=== PATIENT | male | born 1930 | race Two or more races ===

== ENCOUNTER 2017-04-29 08:42 | Day surgery (SDC) | payer MEDICARE, OTHER ==
[2017-04-29] VITALS (19 sets, daily range): BP systolic 112–153; BP diastolic 57–85; PULSE 62–74; RESP 14–21; Ht 170.2 cm; Wt 88.6 kg
[~2017-04-29] VITALS: Ht 170.2 cm; Wt 88.6 kg
[2017-04-29 09:52] LABS: ADD SCAN DIFF NO
[2017-04-29] MEDS ORDERED: LOSA1TAB19 PO (09:56)
[2017-04-29] MEDS ORDERED: GLIP-95 PO (09:57)
[2017-04-29] MEDS ORDERED: SITA100T8 PO (09:57)
[2017-04-29] MEDS ORDERED: TAMS0.4C2 PO (09:57)
[2017-04-29] MEDS ORDERED: ISOS30TA5 PO (09:58)
[2017-04-29] MEDS ORDERED: LUBI24CA7 PO (09:58)
[2017-04-29] MEDS ORDERED: GABA100C14 PO (09:59)
[2017-04-29] MEDS ORDERED: CHOL100062 PO (10:00)
[2017-04-29] MEDS ORDERED: DUTA0.5C PO (10:00)
[2017-04-29 10:01] LABS: BASOPHILS % 0.9 % (0.0-2.0); EOSINOPHILS # 0.2 10^3/ul (0.0-0.5); EOSINOPHILS % 5.1 % (0.0-7.0); HEMATOCRIT 36.2 % (42.0-52.0); HEMOGLOBIN 12.2 g/dl (14.0-18.0); LYMPHOCYTES # 0.9 10^3/ul (0.8-2.9); MEAN CORPUSCULAR HEMOGLOBIN 29.5 pg (29.0-33.0); MEAN CORPUSCULAR HGB CONC 33.7 g/dl (32.0-37.0); MEAN CORPUSCULAR VOLUME 87.7 fl (82.0-101.0); MEAN PLATELET VOLUME 9.6 fl (7.4-10.4); MONOCYTE # 0.4 10^3/ul (0.3-0.9); MONOCYTES % 9.4 % (0.0-11.0); NEUTROPHIL # 3.1 10^3/ul (1.6-7.5); NEUTROPHILS % 65.4 % (39.0-77.0); PLATELET COUNT 114 10^3/UL (140-415); RED BLOOD COUNT 4.13 10^6/ul (4.70-6.10); RED CELL DISTRIBUTION WIDTH 13.3 % (11.5-14.5); WHITE BLOOD COUNT 4.7 10^3/ul (4.8-10.8)
[2017-04-29] MEDS ORDERED: POTA20TA96 PO (10:01)
[2017-04-29] MEDS ORDERED: AMLO-147 PO (10:02)
[2017-04-29] MEDS ORDERED: FLUT16SP17 NASAL (10:03)
[2017-04-29] MEDS ORDERED: CRAN300T PO (10:03)
[2017-04-29] MEDS ORDERED: MAGN400T28 PO (10:03)
[2017-04-29] MEDS ORDERED: CARV12.579 PO (10:04)
[2017-04-29] MEDS ORDERED: ASPI325T4 PO (10:04)
[2017-04-29] MEDS ORDERED: NIT4 SL (10:04)
[2017-04-29 10:11] LABS: PROTIME 13.2 Sec (12.2-14.2)
[2017-04-29 10:12] LABS: PARTIAL THROMBOPLASTIN TIME 25.8 Sec (25.0-35.0)
[2017-04-29] MEDS ORDERED: IODIXANOL LOCM 100 ML BTL ONE ×2 (10:18→10:57)
[2017-04-29] MEDS ORDERED: VERAPAMIL 5 MG INJ ONE (10:18)
[2017-04-29] MEDS ORDERED: NITROGLYCERIN (IC) 100 MCG/ML INJ ONE (10:18)
[2017-04-29] MEDS ORDERED: LIDOCAINE 1% (MDV) 20 ML INJ ONE (10:18)
[2017-04-29] MEDS ORDERED: HEPARIN 1000 UNITS/ML 10 ML INJ ONE (10:18)
--- NOTE | 2017-04-29 10:24 | RADRPT ---
PROCEDURE: XR Chest. CLINICAL INDICATION: Preop TECHNIQUE: An AP view of the chest was obtained. COMPARISON: No prior exam is available for comparison. FINDINGS: There is prominence of the interstitial markings. No pleural effusion or pneumothorax is seen. Th e cardiomediastinal silhouette is mildly enlarged . Calcifications are seen within the aortic arch. The osseous structures demonstrate senescent changes. IMPRESSION: 1. Mild prominence of the interstitial markings, may reflect mild underlying interstitial edema or chronic lung changes. 2. Mild cardiomegaly and aortic atherosclerosis. RPTAT: HH .Silvia Vazquez MD, MD Date Time Electronically viewed and signed by .Silvia Vazquez MD, on 04/29/2017 10:24 .G/
[2017-04-29] MEDS ORDERED: SOD CHLORIDE 0.45% 1,000 ML IV SCH (10:30)
[2017-04-29] MEDS ORDERED: DIAZEPAM 5 MG TAB PO SCH (10:30)
[2017-04-29] MEDS ORDERED: DIPHENHYDRAMINE 50 MG CAP PO SCH (10:30)
[2017-04-29] MEDS ORDERED: FAMOTIDINE 20 MG TAB PO SCH (10:30)
[2017-04-29 10:40] LABS: CHOL/HDL RATIO 4.5 RATIO
[2017-04-29 10:42] LABS: CALCIUM 9.2 mg/dl (8.4-10.2); CREATININE 1.04 mg/dl (0.61-1.24); POTASSIUM 3.4 mmol/L (3.5-5.1)
[2017-04-29] MEDS ORDERED: MIDAZOLAM 1 MG/ML 2 ML INJ ONE (10:51)
[2017-04-29] MEDS ORDERED: FENTAnyl 50 MCG/ML VIAL ONE (10:51)
[2017-04-29] MEDS ORDERED: ONDANSETRON 4 MG INJ IV PRN (11:30)
[2017-04-29] MEDS ORDERED: AL HYDROX/MG HYDROX/SIMETH 30 ML CUP PO PRN (11:30)
[2017-04-29] MEDS ORDERED: morphine 2 MG INJ IV PRN (11:30)
[2017-04-29] MEDS ORDERED: ACETAMINOPHEN 325 MG TAB PO PRN (11:30)
[2017-04-29] MEDS ORDERED: SOD CHLORIDE 0.9% 1,000 ML IV SCH (11:30)
--- NOTE | 2017-04-29 12:27 | CARRPT ---
DATE OF PROCEDURE: 04/29/2017 TYPE OF PROCEDURE: 1. Left heart catheterization. 2. Coronary angiography. 3. Measurement of left ventricular end-diastolic pressure. ATTENDING PHYSICIAN: Apple Ch MD REFERRING PHYSICIAN: Justin Shine MD INDICATION: Chest pain with positive stress test findings. TYPE OF ANESTHESIA: Conscious and local. BRIEF HISTORY AND HOSPITAL COURSE: Mr. Parra is an 86-year-old male with history of hypertension, dyslipidemia, diabetes mellitus, who initially presented with complaints of substernal chest pain. The patient subsequently had a cardiac stress test revealing positive ischemia anterior and inferior . Given these findings, the patient was referred for and presents today in order to undergo left he art catheterization to assess for the possibility of significant obstructive coronary artery disease lending to his symptoms of chest pain and subsequent positive stress test findings. PROCEDURE: After informed consent was obtained, the patient was brought to the [facility] cardiac catheterization lab where his right radial area was prepped and draped in the usual sterile fashion. Lidocaine 2% was infiltrated into the right radial area in order to achieve adequ ate anesthesia. Using the modified Seldinger technique, the radial artery was cannulated and a 6-Fr [facility] arterial sheath was placed. A 6-Spanish JL3.5 catheter was used to cannulate the left main patti nary ostium. With contrast injection, multiple views of the left coronary arterial system were obta ined. JL3.5 was removed over a guidewire and a JR4 was used to cannulate the right coronary arteria l ostium. With contrast injection, multiple views of the right coronary arterial system were obtain ed. The JR4 was then used to cross the aortic valve. Left ventricular end-diastolic pressure was m easured. Pullback across the aortic valve to assess for significant gradient, which there was not a nd removed. Subsequently, this completed the procedure. The patient's sheath was removed. TR band was applied. There were no noted complications. FINDINGS: Coronary angiography: Left main very large 6 mm with a mid body 20% stenosis. The circu mflex proximally is a 3.5 mm vessel and in its proximal portion has a 30% stenosis. The rest of the circumflex thereafter is free of significant focal stenoses. It is a codominant vessel with multip le distal branching obtuse marginals and a left-sided PDA with mild to moderate diffuse disease up t o approximately 50%. The LAD proximally is a 3 mm vessel and had a 20% ostial stenosis. In the mi d portion of the LAD, there is another 20% to 30% tubular stenosis. Remainder of the LAD is free of significant focal stenoses, rounds the apex. Two proximal branching diagonals, 2 mm each with the inferior branch having a 30% to 40% stenosis. The right coronary artery proximally is a 2 mm vessel and in its midportion has an ectatic region with a focal stenosis of approximately 30%. The remain parviz of the right coronary artery is free of significant focal stenoses. It does give off a very sma ll PDA making it a codominant vessel, sub-2 mm vessel with no significant focal stenoses and a very small posterolateral branch with mild to moderate diffuse stenosis up to approximately 50%. Measurement of left ventricular end-diastolic pressure of 17. No significant aortic stenosis by gra dient. TOTAL FLUOROSCOPY TIME: 3 minutes. TOTAL CONTRAST: 55 mL. IMPRESSION: 1. Mild to moderate nonobstructive coronary artery disease. 2. High normal left heart filling pressures. 3. No significant aortic stenosis by gradient. RECOMMENDATIONS: In light of procedure findings at this time would: 1. Maximize medical management. 2. Aggressive risk factor reduction. 3. The patient will be readmitted to the same day surgery center for post-cath observation and prob able discharge later this afternoon. Dictated By: APPLE JEREZ/ABIOLA Conf#: [id number] DID#: [id number]
== END 2017-04-29 16:41 | disposition home or self-care (01) ==
LOC: SDS 08:42
PROVIDERS: ATTEND Internal Medicine
DX: I25.10 Atherosclerotic heart disease of native coronary artery without angina pectoris (principal); E78.00 Pure hypercholesterolemia, unspecified; E11.9 Type 2 diabetes mellitus without complications; I10 Essential (primary) hypertension; G47.30 Sleep apnea, unspecified; Z87.442 Personal history of urinary calculi; Z79.82 Long term (current) use of aspirin
CPT/HCPCS: 71010; 80048; 80061; 82962; 85025; 85610; 85730; 93458; C1769; C1887; J1644; J2250; J3010; Q9967